=== PATIENT | male | born 1945 | race Caucasian/White ===

== ENCOUNTER 2024-10-22 19:29 | Emergency (ER) | payer MEDICARE, OTHER, SELFPAY ==
[2024-10-22] VITALS (9 sets, daily range): BP systolic 111–183; BP diastolic 76–98; PULSE 67–95; RESP 18–20; TEMP 36.6–37.2; O2SAT 95–98; BMI 37.1
--- NOTE | 2024-10-22 19:32 | CT_ITS ---
EXAM: STROKE BRAIN/HEAD WITHOUT CONT CLINICAL HISTORY: 79 y/o M with NEURO DEFICIT, ACUTE, STROKE SUSPECTED. COMPARISON: None. TECHNIQUE: Routine CT imaging of the head without IV contrast. Additional multiplanar reformats were obtained. Dose reduction techniques were used including intermediate exposure control (AEC),iterative reconstruction technique, and/or mA and/or KV dose adjustments based on patient's size. FINDINGS: Mild generalized cerebral volume loss with concordant prominence of the ventricles and subarachnoid spaces. Moderate patchy supratentorial white matter hypodensities. The mederos-white matter interfaces are otherwise maintained. No acute intracranial hemorrhage or herniation. Prior ocular lens replacements. The visualized paranasal sinuses and mastoids are unremarkable. No acute calvarial fracture or scalp hematoma. Thickening along the midline posterior lower neck, likely from prior surgery or scarring. CT/STROKE Brain/Head without Cont IMPRESSION: No acute intracranial finding. Dr. Lopez discussed these findings via telephone with Dr. Rosado at 8:00 p .m. on 10/22/2024. Reading Location: [id number]
--- NOTE | 2024-10-22 19:37 | ED.VIS.STROK ---
HPI History of Present Illness Chief Complaint: Stroke Alert Informant: EMS Onset/Context/Timing Onset: Today Context: Sudden Onset Timing: Continuous Quality and Location: Positive for Left Facial Droop; Negative for Left Arm Weakness or Left Leg Weakness Narrative Narrative: Patient presents with possible stroke alert that occurred today. EMS reports that patient appeared to be somewhat groggy on their arrival but was otherwise in his normal baseline. EMS reported that approximately 1900 he started having some twitching of the left side of his face and left arm. Patient was not able to talk at that time. EMS reports patient was having difficulty using his left arm and left leg. EMS states patient had a left facial droop at that time. EMS reports that the noted patient took a nap and when he woke up from his nap he was having similar symptoms. EMS does not know what time he was seen prior to taking his nap. Patient is unable to answer questions. [facility] Medical History (Updated 10/22/24 @ 21:[address] Dann Rosado, DO) HTN (hypertension) Medical History unable to obtain unable to obtain Home Medications ?Medication ?Instructions ?Recorded ?Last Taken ?Type albuterol sulfate 90 mcg/actuation 1 - 2 puff inhalation Q4H PRN PRN 11/17/13 Unknown History aerosol inhaler (Ventolin HFA) Shortness Of Breath amlodipine 10 mg tablet 10 mg PO DAILY 11/17/13 Unknown History atorvastatin 40 mg tablet 40 mg PO QHS 11/17/13 Unknown History cholecalciferol (vitamin D3) 25 1,000 unit PO DAILY 11/17/13 Unknown History mcg (1,000 unit) capsule (Vitamin D3) hydrochlorothiazide 25 mg tablet 25 mg PO DAILY 11/17/13 Unknown History hydrocodone-acetaminophen 5-325mg 1 - 2 tab PO Q4H PRN PRN Pain ##20 11/17/13 Unknown Rx 5mg-325mg lisinopril 20 mg tablet 20 mg PO BID 11/17/13 Unknown History loratadine 10 mg tablet (Allergy 10 mg PO DAILY 11/17/13 Unknown History Relief (loratadine)) metoprolol tartrate 25 mg tablet 25 mg PO BID 11/17/13 Unknown History ondansetron 4 mg disintegrating 4 mg PO Q8H PRN PRN Nausea #10 tabs 11/17/13 Unknown Rx tablet warfarin 7.5 mg tablet (Jantoven) 7.5 mg PO DAILY 11/17/13 Unknown History Allergy/AdvReac Type Severity Reaction Status Date / Time No Known Allergies Allergy Verified 10/22/24 19:30 Surgical History (Updated 10/22/24 @ 20:25 by Chelsea Woo) History of heart valve replacement Surgical History unable to obtain unable to obtain Social History Smoking Status: Unknown if ever smoked ROS ROS ED Review of Systems ROS Unobtainable: due to mental condition EXAM Physical Exam Const Vital Signs: 10/22/24 19:30 10/22/24 19:30 10/22/24 19:40 Temperature 98.3 F 98.3 F Temperature Source Temporal Temporal Pulse Rate 80 95 80 Respiratory Rate 18 20 H 20 H Blood Pressure 183/91 H 183/91 H Blood Pressure Mean 121 121 Pulse Ox 97 98 98 Oxygen Delivery Method Nasal Cannula Room Air Nasal Cannula Oxygen Flow Rate (L/min) 2 2 10/22/24 19:41 10/22/24 19:45 10/22/24 20:00 Temperature Temperature Source Pulse Rate 84 80 Respiratory Rate 20 H 20 H Blood Pressure 161/76 H Blood Pressure Mean 104 Pulse Ox 97 98 96 Oxygen Delivery Method Nasal Cannula Nasal Cannula Nasal Cannula Oxygen Flow Rate (L/min) 2 2 2 10/22/24 20:30 10/22/24 20:40 10/22/24 21:00 Temperature 98.9 F 99.0 F Temperature Source Core Core Pulse Rate 74 76 67 Respiratory Rate 20 H 20 H 20 H Blood Pressure 148/95 H 147/94 H 111/98 H Blood Pressure Mean 112 111 102 Pulse Ox 97 98 95 Oxygen Delivery Method Nasal Cannula Nasal Cannula Nasal Cannula Oxygen Flow Rate (L/min) 2 2 2 10/22/24 21:00 Temperature 97.8 F Temperature Source Pulse Rate 76 Respiratory Rate 20 H Blood Pressure 111/98 H Blood Pressure Mean 102 Pulse Ox 96 Oxygen Delivery Method Oxygen Flow Rate (L/min) Positive well nourished and well developed General Appearance ED: well developed and NAD HEENT Reports moist mucous membranes Neck supple and no JVD Resp normal respiratory effort and clear to auscultation bilaterally Cardio Rate: regular rate Rhythm: regular rhythm GI soft to palpation, non-tender and non-distended Neuro Neuro Narrative: There is a left facial droop noted. There is weakness of the left upper and left lower extremities. Patient is also unable to lift his right leg off the EMS cot. Patient is able to hold his right arm in front of him for 10 seconds. Sensation was intact to light touch bilaterally in the upper and lower extremities. Sensorium / Orientation: alert Psych mental status grossly normal MDM MDM MDM Narrative Medical decision making narrative: Prehospital stroke alert was called. Patient was evaluated in the EMS bay. Patient was noted to have some twitching of his left face, and left arm. This resolved prior to completion of my examination. CT scan of the brain will be obtained to assess for bleeding and stroke. CTA of the head and neck will be obtained to assess for large vessel occlusion and aneurysm. Chest x-ray will be obtained to assess for pneumonia or bronchitis. EKG will be obtained to assess for cardiac dysrhythmia and cardiac ischemia. CBC will be obtained to assess for leukocytosis and anemia. Basic metabolic profile will be obtained to assess for electrolyte abnormality and renal function. PPI PT with INR and PTT will be obtained to assess for coagulopathy. High-sensitivity troponin will be obtained to assess for cardiac ischemia. 2-hour repeat high-sensitivity troponin will be obtained to assess for ongoing cardiac ischemia. History & Record Review Discussion w/independent historian: EMS personnel and Family Additional record(s) reviewed:: Prior labs Lab Data Attestation: I reviewed the patient's lab results. Lab results narrative: CBC was reviewed. Hemoglobin is elevated at 19.0. Hematocrit was slightly elevated at 55.2. Basic metabolic profile was reviewed. BUN was slightly elevated at 29 and creatinine was 1.28. These are consistent with previous results. Initial high-sensitivity troponin was reviewed and was slightly elevated at 28. PT with INR and PTT were reviewed. Pro time was 30.6 and INR is 2.9. PTT was 42.6. Labs: Laboratory Results - last 24 hr 10/22/24 19:33 WBC 8.2 RBC 6.06 Hgb 19.0 H* Hct 55.2 H MCV 91.1 MCH 31.4 MCHC 34.4 RDW Std Deviation 47.1 H RDW Coeff of [place] 13.9 Plt Count 158 MPV 9.4 Immature Gran % (Auto) 0.600 Neut % (Auto) 78.5 H Lymph % (Auto) 11.3 L [place] % (Auto) 6.3 Eos % (Auto) 2.8 Baso % (Auto) 0.5 Absolute Neuts (auto) 6.4 Absolute Lymphs (auto) 0.92 Nucleated RBC % 0 PT 30.6 H INR 2.9 APTT 42.6 H Sodium 137 Potassium 4.5 Chloride 103 Carbon Dioxide 19.0 L Anion Gap 15 BUN 29 H Creatinine 1.28 H Estim Creat Clear Calc 60.10 Est GFR (MDRD) Non-Af 57 L BUN/Creatinine Ratio 22.5 H Glucose 119 H Calcium 10.7 Troponin T High Sens 28 H Radiography Diagnostic Testing: Clinical Impression(s) from Imaging Studies Brain CT 10/22/24 19:32 IMPRESSION: No acute intracranial finding. Dr. Lopez discussed these findings via telephone with Dr. Rosado at 8:00 p.m. on 10/22/2024. Reading Location: [facility] Head/Neck CTA 10/22/24 19:40 IMPRESSION: 1. Motion limited examination. No large vessel occlusion, aneurysm or AVM. 2. Mild calcific plaque of the left vertebral artery at its origin. Reading Location: [facility] CT scan of the brain was obtained. There is no acute intracranial abnormality. This was interpreted by the radiologist and was also independently reviewed by myself. CTA of the head and neck was obtained. There is no large vessel occlusion or aneurysm. There is no AVM. There is a mild calcified plaque at the origin of the left vertebral artery. This was interpreted by the radiologist and was also independently reviewed by myself. EKG Initial EKG: Attestation: I personally reviewed and interpreted this EKG as follows: Interpretation: Atrial Fibrillation (77) and Non-Specific ST Changes Prior EKG tracings: not available for review Prior: No Prior Treatment and Re-Evaluation Narrative: Patient started having more seizure activity while in CT scan. Patient was given Ativan 2 mg IV. did call in and states that the patient was seen in [place] emergency department for possible seizure and was transferred to [facility]. Patient was not started on any antiepileptics at that time. It is unclear if patient actually had a seizure or was just evaluated for possible seizure. also states the patient is on Coumadin daily. Stroke neurologist evaluated the patient and felt that the symptoms are due to seizure activity. He recommended giving the patient an additional 2 mg of Ativan. He also recommends starting patient on Keppra. He recommended transferring the patient to [facility]. Patient will be transferred to the emergency department there for stroke/seizure evaluation. Family is agreeable with this. Since the patient is no longer seizing, patient does not require intubation. Patient is maintaining his airway. Patient was transferred to [facility] in guarded condition. Critical Care Time Critical Care Time: Yes Critical care time (excluding procedures): 30-74 minutes (42), Including time spent:, Discussing w/Patient &/or Family/Db2 Dba, Discussing w/Consultants, Arranging Admission or Transfer and Performing Direct Patient Care at Bedside Discharge Plan Triage Chief Complaint: Stroke Alert ED Provider: Dann Rosado Dx/Rx/DC Orders Clinical Impression: New onset seizure, Altered mental status, Elevated troponin Prescriptions: No Action atorvastatin 40 MG tablet 40 mg PO QHS warfarin [Jantoven] 7.5 MG tablet 7.5 mg PO DAILY lisinopril 20 MG tablet 20 mg PO BID amlodipine 10 MG tablet 10 mg PO DAILY hydrochlorothiazide 25 MG tablet 25 mg PO DAILY albuterol sulfate [Ventolin HFA] 1 INHALER inhaler 1 - 2 puff inhalation Q4H PRN PRN (Reason: Shortness Of Breath) loratadine [Allergy Relief (loratadine)] 10 MG tablet 10 mg PO DAILY cholecalciferol (vitamin D3) [Vitamin D3] 1,000 UNIT capsule 1,000 unit PO DAILY metoprolol tartrate 25 MG tablet 25 mg PO BID hydrocodone-acetaminophen 1 TABLET tablet 1 - 2 tab PO Q4H PRN PRN (Reason: Pain) Qty: 20 0RF ondansetron 4 MG tablet 4 mg PO Q8H PRN PRN (Reason: Nausea) Qty: 10 0RF Primary Care Provider: [facility] Doctor,Out of Referrals: [facility] Doctor,Out of [Primary Care Provider] - Print Language: Croatian Disposition Disposition: Acute Care Hospital Discharge Location: [facility] Discharge Date/Time: 10/22/24 21:45
--- NOTE | 2024-10-22 19:40 | CT_ITS ---
PROCEDURE: STROKE CTA HEAD AND NECK W/CON 10/22/2024 REASON FOR EXAM: NEURO DEFICIT, ACUTE, STROKE SUSPECTED TECHNIQUE: CTA imaging of the head and neck from the aortic arch to the skull vertex with out contrast and with intravenous contrast. Multiplanar and multisequence images were obtained. CONTRAST: Isovue 370 VOLUME: 100 mL One or more dose reduction techniques were used (e.g., Automated exposure control, adjustment of the mA and/or kV according to patient size, use of iterative reconstruction technique). RADIATION DOSE SUMMARY: CTDlvol: 30 mGy DLP: 800 mGycm COMPARISON: Same-day CT head FINDINGS: Visualization is limited by motion artifact and timing of contrast bolus imaging. Patient reportedly having seizures on exam table. See same day CT noncontrast for discussion of nonvascular findings. CTA neck: Three-vessel aortic arch with mild mixed calcific plaque. Mild calcific plaque of the left vertebral artery at its origin. Poor visualization of the right vertebral artery due to motion artifact, however the distal cervical vertebral artery is grossly patent. Calcific plaque of the bilateral cervical carotid arteries without focal stenosis or occlusion by NASCET criteria. CTA head: The bilateral anterior, middle and posterior cerebral arteries are widely patent. The bilateral carotid siphons are widely patent. No aneurysm or AVM. Major venous structures: Unremarkable. Other findings: Cervical spondylosis. CT/STROKE CTA Head AND Neck W/Con IMPRESSION: 1. Motion limited examination. No large vessel occlusion, aneurysm or AVM. 2. Mild calcific plaque of the left vertebral artery at its origin. Reading Location: [id number]
--- NOTE | 2024-10-22 19:43 | PCA ---
no old ekg
[2024-10-22] MEDS: Lorazepam 2 MG/ML WCH Syringe IV ×2 (19:49→20:20)
--- NOTE | 2024-10-22 19:49 | ED.RN ---
The pt returned to the room, the patient was actively having seizure like activity. verbal order previously given for Ativan, see MAR for documentation.
--- NOTE | 2024-10-22 20:01 | ED.RN ---
1937 on upon arrival at the Ct scan the pt had a full arm movement, facial twitching seizure which last about 1 minute.MD made aware and ativan was order,but prior to given the medication the pt stopped seizing.
[2024-10-22 20:06] LABS: Absolute Lymphocyte Count 0.92 X10^3/uL (0.83-4.51); Absolute Neutrophil Count 6.4 X10^3/uL (2.0-7.7); Basophil# 0.04 X10^3/uL; Basophil% 0.5 % (0-1); Eosinophil# 0.23 X10^3/uL; Eosinophils% 2.8 % (0-5); Hematocrit 55.2 % (40-54); Lymphocyte # 0.92 X10^3/ul (0.83-4.51); Lymphocyte % 11.3 % (19-41); Mean Corp Hgb Conc 34.4 g/dL (32-36); Mean Corpuscular Hgb 31.4 pg (27.0-32.0); Mean Corpuscular Volume 91.1 fL (80-94); Mean Platelet Vol. 9.4 fl (6.2-12.0); Monocyte# 0.51 X10^3/uL; Monocyte% 6.3 % (0-10); NRBC Flagged by Analyzer 0 % (0-5); Neutrophil # 6.41 X10^3/uL (2.7-7.7); Neutrophil % 78.5 % (47-70); Platelet Count 158 K/mm3 (150-450); RBC Distribution Width CV 13.9 % (11.6-14.6); RBC Distribution Width SD 47.1 fl (35.1-43.9); Red Blood Count 6.06 M/mm3 (4.6-6.2); White Blood Count 8.2 K/mm3 (4.4-11.0)
[2024-10-22 20:11] LABS: Anion Gap 15 (5-15); BUN 29 mg/dL (4-19); BUN/Creat Ratio 22.5 RATIO (10-20); Calcium,Total 10.7 mg/dL (7.6-11.0); Chloride 103 mmol/L (98-108); Creatinine, Serum 1.28 mg/dL (0.70-1.20); EST Glomerular Filtration Rate 57 (>60); Glucose 119 mg/dL (70-99); Potassium 4.5 mmol/L (3.3-5.1); Sodium Level 137 mmol/L (133-145); Troponin T High Sensitivity 28 ng/L (<=22)
[2024-10-22 20:15] LABS: International Normalized Ratio 2.9; Prothrombin Time (Protime)PT. 30.6 SECONDS (11.7-14.9)
[2024-10-22 20:16] LABS: Partial Thromboplast Time 42.6 Seconds (24.1-36.2)
[2024-10-22] MEDS: levETIRAcetam IV 1,000 MG/100 ML BAG 400 MG IV (20:19)
--- NOTE | 2024-10-22 20:35 | ED.RN ---
This RN noticed that the patient's naqvi catheter has been leaking out around the tube and onto the sheet above the patient. This RN repositioned the patient's naqvi catheter and got urine output that was clearer than previously. The naqvi catheter is draining continuously and color has improved slightly. notified.
--- NOTE | 2024-10-22 20:36 | ED.RN ---
1929: The patient came in by EMS, stating that the patient's called EMS for her not acting right. Per EMS, pt was slurring speech and incontinent of urine when they arrived, EMS stood the patient up in order to help get him changed, per EMS the patient had a left sided facial droop at this time. Upon arrival, the patient was able to speak to [facility] staff (see NIHSS documentation). 1937: This RN was notified that the patient was having seizure like activity, MD verbal order obtained for medication. However, the patient stopped the seizure like activity after a minute and medication was not administered at this time. 1938: The patient was brought back into the room and the patient started to have seizure like activity again, medication administered at this time (see MAR documentation). 5: The patient continues to have a lack of purposeful movements. 1957: [facility] Neurologist on the telehealth robot to witness the patient's movements and lack of responsiveness. 1999: Upon NIHSS, patient responds with grunting when name is called. Right leg and right arm has movement but not purposeful movements. See NIHSS
== END 2024-10-22 21:45 | disposition short-term general hospital (02) ==
PROVIDERS: Emergency Provider Emergency Medicine; PCP Nurse Practitioner Family; Visit Provider Emergency Medicine
DX: R29.810 Facial weakness (principal); R56.9 Unspecified convulsions; I10 Essential (primary) hypertension; R79.89 Other specified abnormal findings of blood chemistry; R41.82 Altered mental status, unspecified; Z79.899 Other long term (current) drug therapy; Z95.2 Presence of prosthetic heart valve; R29.898 Other symptoms and signs involving the musculoskeletal system
CPT/HCPCS: 51702; 70450; 70496; 70498; 80048; 84484; 85025; 85610; 85730; 93005; 96374; 96375; 99285; Q9967; A4216